=== PATIENT | female | born 1980 | race Caucasian/White ===

== ENCOUNTER 2021-09-18 07:49 | Emergency (ER) | payer MEDICAID ==
[~2021-09-18] VITALS: Ht 165.1 cm; Wt 63.5 kg
--- NOTE | 2021-09-18 08:32 | NUR ---
URINE SPECIMEN SENT TO LAB
[2021-09-18] MEDS ORDERED: DOXY100T2 PO (09:07)
[2021-09-18] MEDS ORDERED: LIDOCAINE /MPF 1% VIAL 5 ML VIAL ONE (09:10)
[2021-09-18] MEDS ORDERED: CEFTRIAXONE 500 MG VIAL ONE (09:10)
[2021-09-18] MEDS ORDERED: PENICILLIN G BENZATHINE 2.4 MMU/4 ML ML IM ONE (09:11)
[2021-09-18] MEDS: CEFTRIAXONE 1 G VIAL IM ONE (09:15)
[2021-09-18] MEDS: PENICILLIN G BENZATHINE 2.4 MMU/4 ML ML IM ONE (09:17)
[2021-09-18 09:29] VITALS: BP 110/75
--- NOTE | 2021-09-18 09:29 | NUR ---
Patient discharged to home in stable condition. Written and verbal after care instructions given. Patient verbalizes understanding of instruction.
[2021-09-21 22:06] LABS: *HIV-1 RNA BY PCR <20 copies/mL (.)
== END 2021-09-18 09:25 | disposition home or self-care (01) ==
LOC: ER 07:53
DX: Z11.3 Encounter for screening for infections with a predominantly sexual mode of transmission (principal); Z87.42 Personal history of other diseases of the female genital tract; Z79.899 Other long term (current) drug therapy
CPT/HCPCS: 36415; 84703; 86592; 86593; 87491; 87536; 87591; 87806; 96372 ×2; 99284; J0558; J0696; J3490

== ENCOUNTER 2022-05-04 21:33 | Emergency (ER) | payer MEDICAID ==
[~2022-05-04] VITALS: Ht 165.1 cm; Wt 68.0 kg
[~2022-05-04 21:33] MED LIST: DOXY100T2 PO
[2022-05-04 21:53] VITALS: BP 131/72
[2022-05-04] MEDS ORDERED: IBUP-1957 PO (22:15)
[2022-05-04] MEDS ORDERED: AMOX-430 PO (22:15)
[2022-05-04] MEDS ORDERED: IBUPROFEN 400 MG TABLET ONE (22:17)
--- NOTE | 2022-05-04 22:25 | NUR ---
Patient discharged to home in stable condition. Written and verbal after care instructions given. Patient verbalizes understanding of instruction. Pt ambulatory with a steady gait
[2022-05-04] MEDS ORDERED: IBUPROFEN 400 MG TABLET PO ONE (22:30)
== END 2022-05-04 22:26 | disposition home or self-care (01) ==
LOC: ER 21:34
DX: H73.011 Bullous myringitis, right ear (principal); Z60.2 Problems related to living alone; Z79.899 Other long term (current) drug therapy